=== PATIENT | female | born 1965 | race Caucasian/White ===

== ENCOUNTER 2017-02-20 10:37 | Emergency (ER) | payer BC ==
[~2017-02-20 10:37] MED LIST: B COMPLEX1 CAP PO; CLEOCIN HCL300 MG PO; COPEGUS200 MG PO; DICLOFENAC POTA50 M1 PO; ESTROVEN REGU400 MCG PO; HAIR, SKIN & N1 EACH PO; IRON325 ( 65 PO; MILK THISTLE500 MG PO; MIRALAX12 EA PO; MIRALAX17 GM PO; MULTIVITAMIN1 TAB PO; NORCO 5/325 TAB1 TAB PO; NORCO 5/3251 TAB PO; OXYCODONE HCL5 MG PO; PEGASYS180 MCG/01 SC; PEGINTERFERON ALFA IM; POTASSIUM PO; Procrit; RIBAVIRIN; RIBAVIRIN PO; RIBAVIRIN200 MG PO; TRAMADOL HCL50 MG PO; TYLENOL #31 TA1 PO; TYLENOL325 MG PO; ULTRAM50 M1 PO; VICTRELIS200 MG PO; VITAMIN B PO; ZITHROMAX250 M1 PO; [UNRECOGNIZED DRUG - OTHER] SQ
[2017-02-20] MEDS ORDERED: VITAMIN D31000 UNI3 (10:53)
[2017-02-20] MEDS ORDERED: MILK THISTLE140 M2 PO (10:53)
[2017-02-20] MEDS ORDERED: VITAMIN B122500 MCG PO (10:54)
[2017-02-20] MEDS ORDERED: ULTRAM50 M1 PO (10:54)
[2017-02-20] MEDS ORDERED: CYCLOBENZAPRINE5 M1 PO (10:55)
[2017-02-20 11:53] LABS: BASO % 0.4 % (0-2); EOS % 4.1 % (0-7); EOSINOPHIL ABSOLUTE COUNT 0.2 tho/cmm (0.0-0.7); HCT-HEMATOCRIT 38.1 % (34.0-49.0); HGB-HEMOGLOBIN 13.1 gm/dl (12.0-15.5); IMMATURE GRANULOCYTES ABSOLUTE 0.01 tho/cmm (0-0.03); IMMATURE GRANULOCYTES PERCENT 0.2 % (0-0.3); LYMPH % 28.7 % (20-45); LYMPH ABSOLUTE COUNT 1.3 tho/cmm (0.8-4.5); MCHC MEAN CORPUSCULAR HGB CONC 34.4 % (32.0-36.0); MCV (MEAN CELL VOLUME) 90.1 fl (82.0-96.0); MEAN PLATELET VOLUME 10.7 cmc (9.4-12.4); MONOCYTE ABSOLUTE COUNT 0.4 tho/cmm (0.0-1.2); NEUTROPHIL ABSOLUTE COUNT 2.7 tho/cmm (1.6-8.0); NEUTROPHIL-AUTOMATED 2.7 tho/cmm (1.6-8.0); NEUTROPHILS % 58.6 % (40-80); PLATELET COUNT 137 tho/cmm (150-450); RED BLOOD COUNT 4.23 mil/cmm (4.00-5.20); RED CELL DISTRIBUTION WIDTH 13.4 % (12.4-16.4); WHITE BLOOD COUNT 4.6 tho/cmm (4.0-10.0)
[2017-02-20 12:08] LABS: ALBUMIN 3.8 g/dl (3.5-5.0); ALKALINE PHOSPHATASE 110 U/L (33-138); ALT/SGPT 35 U/L (12-78); ANION GAP 11 mmol/L (0-20); AST/SGOT 27 U/L (10-40); BILIRUBIN,TOTAL 0.4 mg/dl (0-1.5); BLOOD UREA NITROGEN 14 mg/dl (6-24); CALCIUM 8.8 mg/dl (8.5-10.5); CARBON DIOXIDE-VENOUS 27 mmol/L (22-32); CHLORIDE 107 mmol/l (96-110); GLUCOSE 86 mg/dL (70-110); POTASSIUM 3.9 mmol/L (3.7-5.1); SODIUM 141 mmol/L (135-145); eGFR VALUE FOR BLACK >90 mL/Min
[2017-02-20 12:12] LABS: TSH-THYROID STIMULATING HORM. 0.89 uIU/ml (0.40-3.80)
== END 2017-02-20 12:50 ==
LOC: EDMED 10:37
PROVIDERS: Emergency Medicine
DX: R55 Syncope and collapse (principal); F17.200 Nicotine dependence, unspecified, uncomplicated; Z90.49 Acquired absence of other specified parts of digestive tract; Z90.710 Acquired absence of both cervix and uterus